=== PATIENT | male | born 1935 | race Caucasian/White ===

== ENCOUNTER 2016-10-24 12:08 | Emergency (ER) | payer OTHER ==
[2013-06-25 23:39] VITALS: BMI 25.2
[~2016-10-24 12:08] MED LIST: BAYER CHEWABLE81 MG PO; BRILINTA90 MG PO; COREG6.25 MG PO; ISOSORBIDE DINI30 MG PO; NITROQUICK0.4 MG SL; PRINIVIL20 MG PO; ZOCOR80 MG PO
[2016-10-24 15:53] LABS: ALBUMIN 3.8 g/dL (3.4-5.0); ALKALINE PHOSPHATASE 75 U/L (46-116); ALT (SGPT) 29 U/L (10-68); BILIRUBIN - TOTAL 0.29 mg/dL (0.2-1.3); CALC OSMOLALITY 278 mosm/kg (275-300); CALCIUM 8.5 mg/dL (8.5-10.1); CARBON DIOXIDE 29.4 mmol/L (21.0-32.0); CHLORIDE - SERUM 102 mmol/L (98-107); CREATININE - SERUM 1.1 mg/dL (0.6-1.3); GLUCOSE 98 mg/dL (74-106); POTASSIUM - SERUM 5.1 mmol/L (3.5-5.1); PROTEIN - SERUM 7.2 g/dL (6.4-8.2); SODIUM 137 mmol/L (136-145); UREA NITROGEN 26 mg/dL (7-18); eGFR NON AFRICAN AMERICAN 68 mL/min (90-120)
[2016-10-24 15:55] LABS: TROPONIN-I < 0.017 ng/mL (0.000-0.060)
[2016-10-24 16:01] LABS: BASOPHILS 0.4 % (0.0-2.0); EOSINOPHILS 7.1 % (0-7); HEMATOCRIT 39.5 % (42.0-54.0); HEMOGLOBIN 12.9 g/dL (13.5-17.5); IMMATURE GRANULOCYTES 0.1 % (0-5); LYMPHOCYTES 29.7 % (15-50); MCH 32.4 pg (26.0-34.0); MCHC 32.7 g/dL (31.0-37.0); MCV 99.2 fL (80.0-100.0); MONOCYTES 9.7 % (2-11); PLATELET COUNT 172 10x3/uL (130-400); RBC 3.98 10x6/uL (4.20-6.10); RDW 13.8 % (11.5-14.5); WBC 7.9 10x3/uL (4.8-10.8)
== END 2016-10-24 18:29 | disposition home or self-care (01) ==
LOC: D.ER 12:08
PROVIDERS: Physician Assistant
DX: M54.5 Low back pain (principal); I25.118 Atherosclerotic heart disease of native coronary artery with other forms of angina pectoris; R11.0 Nausea; Z72.0 Tobacco use

== ENCOUNTER 2017-05-22 14:44 | Emergency (ER) | payer OTHER ==
[2013-06-25 23:39] VITALS: BMI 25.2
[2017-05-22 15:28] LABS: BASOPHILS 0.2 % (0-2); HEMOGLOBIN 13.7 g/dL (13.5-17.5); IMMATURE GRANULOCYTES 0.3 % (0-5); LYMPHOCYTES 25.9 % (15-50); MCH 33.3 pg (26.0-34.0); MCHC 33.4 g/dL (31.0-37.0); MCV 99.5 fL (80.0-100.0); MEAN PLATELET VOLUME 9.7 fL (7.4-10.4); NEUTROPHILS 61.6 % (40-80); PLATELET COUNT 177 10x3/uL (130-400); RBC 4.12 10x6/uL (4.20-6.10); RDW 14.2 % (11.5-14.5); WBC 9.2 10x3/uL (4.8-10.8)
[2017-05-22 15:36] LABS: INR 0.98 (0.85-1.17); PROTIME 12.8 SECONDS (11.6-15.0)
[2017-05-22 15:47] LABS: ALBUMIN 3.6 g/dL (3.4-5.0); ALKALINE PHOSPHATASE 71 U/L (46-116); ALT (SGPT) 23 U/L (10-68); BILIRUBIN - TOTAL 0.34 mg/dL (0.2-1.3); CALC OSMOLALITY 283 mosm/kg (275-300); CALCIUM 8.9 mg/dL (8.5-10.1); CARBON DIOXIDE 28.3 mmol/L (21.0-32.0); CHLORIDE - SERUM 105 mmol/L (98-107); CREATININE - SERUM 1.3 mg/dL (0.6-1.3); GLUCOSE 123 mg/dL (74-106); POTASSIUM - SERUM 4.1 mmol/L (3.5-5.1); SODIUM 139 mmol/L (136-145); UREA NITROGEN 26 mg/dL (7-18); eGFR NON AFRICAN AMERICAN 56 mL/min (90-120)
[2017-05-22 15:55] LABS: CREATINE KINASE 82 UL (21-232); MAGNESIUM - SERUM 2.1 mg/dL (1.8-2.4); PRO BNP 140 pg/mL (0-450)
[2017-05-22 16:01] LABS: TROPONIN-I < 0.017 ng/mL (0.000-0.060)
[2017-05-22 16:12] LABS: APPEARANCE CLEAR (CLEAR); BILIRUBIN NEGATIVE (NEGATIVE); COLOR YELLOW (YELLOW); GLUCOSE NEGATIVE (NEGATIVE); KETONE NEGATIVE (NEGATIVE); NITRITE NEGATIVE (NEGATIVE); PROTEIN NEGATIVE (NEGATIVE); SPECIFIC GRAVITY 1.015 (1.005-1.020); UROBILINOGEN NORMAL (NORMAL)
== END 2017-05-22 19:48 | disposition home or self-care (01) ==
LOC: D.ER 14:44
PROVIDERS: Emergency Medicine; Nurse Practitioner Family
DX: J44.1 Chronic obstructive pulmonary disease with (acute) exacerbation (principal); M79.602 Pain in left arm

== ENCOUNTER 2017-05-27 22:51 | Emergency (ER) | payer OTHER ==
[2013-06-25 23:39] VITALS: BMI 25.2
[2017-05-27 23:01] LABS: HEMATOCRIT 40.9 % (42.0-54.0); HEMOGLOBIN 13.9 g/dL (13.5-17.5); LYMPHOCYTES 17.6 % (15-50); MCH 32.9 pg (26.0-34.0); MCV 96.9 fL (80.0-100.0); MEAN PLATELET VOLUME 10.1 fL (7.4-10.4); NEUTROPHILS 74.3 % (40-80); PLATELET COUNT 191 10x3/uL (130-400); RBC 4.22 10x6/uL (4.20-6.10); RDW 14.4 % (11.5-14.5); WBC 9.9 10x3/uL (4.8-10.8)
[2017-05-27 23:20] LABS: ALBUMIN 3.7 g/dL (3.4-5.0); ALKALINE PHOSPHATASE 66 U/L (46-116); ALT (SGPT) 25 U/L (10-68); BILIRUBIN - TOTAL 0.14 mg/dL (0.2-1.3); CALC OSMOLALITY 285 mosm/kg (275-300); CARBON DIOXIDE 31.2 mmol/L (21.0-32.0); CHLORIDE - SERUM 101 mmol/L (98-107); CREATININE - SERUM 1.3 mg/dL (0.6-1.3); GLUCOSE 117 mg/dL (74-106); POTASSIUM - SERUM 4.6 mmol/L (3.5-5.1); PROTEIN - SERUM 7.5 g/dL (6.4-8.2); SODIUM 140 mmol/L (136-145); UREA NITROGEN 28 mg/dL (7-18); eGFR NON AFRICAN AMERICAN 56 mL/min (90-120)
[2017-05-27 23:26] LABS: CHOL - HDL RATIO 2.5 ratio (2.3-4.9); CHOLESTEROL, TOTAL 160 mg/dL (0-200); CKMB 0.9 U/L (0.0-3.6); CREATINE KINASE 58 UL (21-232); HDL CHOLESTEROL 64 mg/dL (32-96); LDL CHOLESTEROL 75 mg/dL (0-100); LDL-HDL RATIO 1.2 ratio (1.5-3.5); TRIGLYCERIDE 107 mg/dL (30-200)
[2017-05-27 23:27] LABS: TROPONIN-I < 0.017 ng/mL (0.000-0.060)
== END 2017-05-27 23:50 | disposition home or self-care (01) ==
LOC: D.ER 22:51
PROVIDERS: Family Medicine
DX: B02.9 Zoster without complications (principal); J44.9 Chronic obstructive pulmonary disease, unspecified

== ENCOUNTER 2017-06-20 15:01 | Emergency (ER) | payer MEDICARE, OTHER ==
[2013-06-25 23:39] VITALS: BMI 25.2
[2017-06-20 17:08] LABS: BASOPHILS 0.5 % (0-2); EOSINOPHILS 7.3 % (0-7); HEMATOCRIT 39.8 % (42.0-54.0); HEMOGLOBIN 13.2 g/dL (13.5-17.5); IMMATURE GRANULOCYTES 0.3 % (0-5); LYMPHOCYTES 28.3 % (15-50); MCH 32.8 pg (26.0-34.0); MCHC 33.2 g/dL (31.0-37.0); MEAN PLATELET VOLUME 9.6 fL (7.4-10.4); MONOCYTES 11.4 % (2-11); NEUTROPHILS 52.2 % (40-80); PLATELET COUNT 185 10x3/uL (130-400); RBC 4.02 10x6/uL (4.20-6.10); WBC 7.3 10x3/uL (4.8-10.8)
[2017-06-20 17:22] LABS: ALBUMIN 3.3 g/dL (3.4-5.0); ALKALINE PHOSPHATASE 65 U/L (46-116); ALT (SGPT) 18 U/L (10-68); BILIRUBIN - TOTAL 0.14 mg/dL (0.2-1.3); CALC OSMOLALITY 275 mosm/kg (275-300); CALCIUM 8.6 mg/dL (8.5-10.1); CARBON DIOXIDE 31.7 mmol/L (21.0-32.0); CHLORIDE - SERUM 101 mmol/L (98-107); GLUCOSE 101 mg/dL (74-106); POTASSIUM - SERUM 4.6 mmol/L (3.5-5.1); SODIUM 137 mmol/L (136-145); UREA NITROGEN 18 mg/dL (7-18); eGFR NON AFRICAN AMERICAN 76 mL/min (90-120)
== END 2017-06-20 22:30 | disposition home or self-care (01) ==
LOC: D.ER 15:01
PROVIDERS: Physician Assistant
DX: R55 Syncope and collapse (principal); Z87.09 Personal history of other diseases of the respiratory system; I95.9 Hypotension, unspecified; B02.29 Other postherpetic nervous system involvement; F17.200 Nicotine dependence, unspecified, uncomplicated

== ENCOUNTER 2017-11-21 12:21 | Observation (INO) | payer MEDICARE, OTHER ==
[~2017-11-21] VITALS: Ht 167.6 cm; Wt 64.5 kg
[2017-11-21 13:17] LABS: BASOPHILS 0.4 % (0-2); EOSINOPHILS 4.9 % (0-7); HEMATOCRIT 41.7 % (42.0-54.0); HEMOGLOBIN 14.1 g/dL (13.5-17.5); IMMATURE GRANULOCYTES 0.3 % (0-5); LYMPHOCYTES 34.8 % (15-50); MCH 33.1 pg (26.0-34.0); MCHC 33.8 g/dL (31.0-37.0); MCV 97.9 fL (80.0-100.0); MEAN PLATELET VOLUME 10.2 fL (7.4-10.4); NEUTROPHILS 52.6 % (40-80); PLATELET COUNT 186 10x3/uL (130-400); RBC 4.26 10x6/uL (4.20-6.10); RDW 13.7 % (11.5-14.5); WBC 7.2 10x3/uL (4.8-10.8)
[2017-11-21 13:45] LABS: ALBUMIN 3.7 g/dL (3.4-5.0); ALKALINE PHOSPHATASE 62 U/L (46-116); ALT (SGPT) 20 U/L (10-68); BILIRUBIN - TOTAL 0.37 mg/dL (0.2-1.3); CALC OSMOLALITY 274 mosm/kg (275-300); CALCIUM 9.2 mg/dL (8.5-10.1); CHLORIDE - SERUM 101 mmol/L (98-107); CREATININE - SERUM 0.9 mg/dL (0.6-1.3); GLUCOSE 106 mg/dL (74-106); POTASSIUM - SERUM 4.6 mmol/L (3.5-5.1); PROTEIN - SERUM 7.3 g/dL (6.4-8.2); SODIUM 136 mmol/L (136-145); UREA NITROGEN 21 mg/dL (7-18); eGFR NON AFRICAN AMERICAN 85 mL/min (90-120)
[2017-11-21 13:54] LABS: CKMB 0.7 U/L (0.0-3.6); CREATINE KINASE 74 UL (21-232)
[2017-11-21 13:56] LABS: TROPONIN-I < 0.017 ng/mL (0.000-0.060)
[2017-11-21 19:48] LABS: APPEARANCE CLEAR (CLEAR); BILIRUBIN NEGATIVE (NEGATIVE); COLOR YELLOW (YELLOW); GLUCOSE NEGATIVE (NEGATIVE); KETONE NEGATIVE (NEGATIVE); NITRITE NEGATIVE (NEGATIVE); PROTEIN NEGATIVE (NEGATIVE); UROBILINOGEN NORMAL (NORMAL)
[2017-11-21 21:48] VITALS: BP 113/72; BMI 21.8
[2017-11-21 22:31] LABS: CKMB 0.6 U/L (0.0-3.6); CREATINE KINASE 71 UL (21-232)
[2017-11-21 22:33] LABS: TROPONIN-I < 0.017 ng/mL (0.000-0.060)
[2017-11-22 00:22] VITALS: BP 124/68
[2017-11-22 04:00] VITALS: BP 133/75
[2017-11-22 04:04] LABS: BASOPHILS 0.6 % (0-2); HEMATOCRIT 40.7 % (42.0-54.0); HEMOGLOBIN 13.5 g/dL (13.5-17.5); IMMATURE GRANULOCYTES 0.1 % (0-5); LYMPHOCYTES 34.6 % (15-50); MCH 32.5 pg (26.0-34.0); MCHC 33.2 g/dL (31.0-37.0); MCV 97.8 fL (80.0-100.0); MEAN PLATELET VOLUME 10.5 fL (7.4-10.4); MONOCYTES 9.8 % (2-11); NEUTROPHILS 49.9 % (40-80); PLATELET COUNT 167 10x3/uL (130-400); RBC 4.16 10x6/uL (4.20-6.10); RDW 13.7 % (11.5-14.5); WBC 7.1 10x3/uL (4.8-10.8)
[2017-11-22 04:46] LABS: CALC OSMOLALITY 275 mosm/kg (275-300); CALCIUM 8.8 mg/dL (8.5-10.1); CARBON DIOXIDE 28.2 mmol/L (21.0-32.0); CHLORIDE - SERUM 103 mmol/L (98-107); CKMB 0.7 U/L (0.0-3.6); CREATINE KINASE 72 UL (21-232); GLUCOSE 96 mg/dL (74-106); POTASSIUM - SERUM 4.3 mmol/L (3.5-5.1); SODIUM 137 mmol/L (136-145); TROPONIN-I < 0.017 ng/mL (0.000-0.060); UREA NITROGEN 18 mg/dL (7-18); eGFR NON AFRICAN AMERICAN 76 mL/min (90-120)
[2017-11-22 08:13] VITALS: BP 119/83
[2017-11-22 09:54] LABS: CKMB 0.7 U/L (0.0-3.6); CREATINE KINASE 71 UL (21-232)
[2017-11-22 09:57] LABS: TROPONIN-I < 0.017 ng/mL (0.000-0.060)
[2017-11-22 11:02] VITALS: Ht 167.6 cm; Wt 64.5 kg
[2017-11-22 12:51] VITALS: BP 141/67
== END 2017-11-22 14:05 | disposition home or self-care (01) ==
LOC: D.ER 12:21 → D.M2 16:27 → D.EDHOLD 16:27 → OBSVTIME 16:27 → D.M2 16:56
PROVIDERS: Family Medicine; Nurse Practitioner Family
DX: R07.9 Chest pain, unspecified (principal); I25.10 Atherosclerotic heart disease of native coronary artery without angina pectoris; Z95.5 Presence of coronary angioplasty implant and graft; E78.5 Hyperlipidemia, unspecified; I10 Essential (primary) hypertension; Z66 Do not resuscitate

== ENCOUNTER 2018-01-28 09:50 | Inpatient (IN) | payer MEDICARE ==
[~2018-01-28] VITALS: Ht 167.6 cm; Wt 74.5 kg
--- NOTE | ~2018-01-28 | OP ---
PATIENT NAME: FREDIS BELL MEDICAL RECORD: [id number] :34 LOCATION:D.M2 D.2133 ADMISSION DATE:01/29/18 SURGEON: CASEY COLINDRES MD DATE OF OPERATION: 01/30/2018 PROCEDURES: 1. PTCA stent left circumflex. 2. PTCA stent first obtuse marginal. 3. Left heart catheterization. 4. Selective coronary angiography. 5. Left ventriculogram. 6. Four-vessel carotid and vertebral angiography. INDICATION: Unstable angina, coronary artery disease, syncope, carotid vascular disease. PROCEDURE PERFORMED: After informed consent was obtained and after a detailed description of risks, benefits as well as alternative therapies, the patient elected to proceed with angiogram and angioplasty. The right femoral area was prepped and draped in normal sterile fashion. Right femoral artery was cannulated via modified Seldinger technique with placement of a 6-Yoruba sheath. All catheters exchanged through this sheath. There was subselection of each subclavian as well as the left carotid. FINDINGS: RIGHT SIDE: The common internal and external carotids have mild plaquing, none greater than 20%, no flow-limiting stenosis. Vertebral artery has no significant disease. LEFT SYSTEM: The common internal and external carotids have mild plaquing, no greater than 20%, no flow-limiting stenosis. Vertebral artery has no significant disease. Left ventriculogram was performed in standard 30-degree BARNEY view, reveals good cardiac wall motion throughout all segments. Overall ejection fraction estimated at 50%. SELECTIVE CORONARY ANGIOGRAPHY: 1. Left main is with no significant angiographic disease. 2. Left anterior descending has previously placed stents, these are widely patent with no significant restenosis. No disease elsewise throughout the LAD or its branches. 3. Left circumflex has previously placed stent in the first obtuse marginal 90% stenosis at the ostium of the obtuse marginal. 4. Right coronary artery has mild irregularities, but no flow-limiting stenosis. PTCA STENT OF THE LEFT CIRCUMFLEX: First obtuse marginal was addressed with a 2.5 x 8 mm [place]. This caused extreme plaque shift into the left circumflex itself causing greater than 70% stenosis of the circumflex. That was addressed with a 3.5 x 12 mm Abdelrahman. Result was 0% residual stenosis. OVERALL IMPRESSION: Successful percutaneous transluminal coronary angioplasty stent of the left circumflex going from 90% initial stenosis to 0% residual. TRANSINT:[id number] Voice Confirmation ID: [id number] DOCUMENT ID: [id number] OPERATIVE REPORT [id number] FREDIS BELL, CASEY RUSSELL at 1325 CC: [id number] DICTATION DATE: 01/30/18 1227 SECURITY INTERN: 01/30/18 1316 DIS IN 01/31/18 [place] [id number]
--- NOTE | ~2018-01-28 | EC ---
PATIENT:FREDIS BELL DATE OF SERVICE: 01/29/18 SEX: M MEDICAL RECORD: [id number] DATE OF : 34 LOCATION:D.M2 D.213 AGE OF PATIENT: 82 ADMISSION DATE: 01/29/18 REFERRING PHYSICIAN: INTERPRETING PHYSICIAN: CASEY HERNÁNDEZ MD ECHOCARDIOGRAM REPORT ECHO CHARGES 4 ECHO COMPLETE Date: 01/30 CLINICAL DIAGNOSIS: CHF ECHOCARDIOGRAPHIC MEASUREMENTS (adult normal given) AC root (d.<3.7cm) 3.1 cm LV Septum d (<1.2 cm> 1.0 cm Valve Excursion 1.5 cm LV Septum (systole) 1.6 cm Left Atria (s.<4.0cm> 3.3 cm LVPW d(<1.2cm) 1.0 cm RV (d.<2.3cm) 2.5 cm LVPW (sytole) 1.6 cm LV diastole(<5.6CM) 5.9 cm MV E-F(>70mm/sec) cm LV systole 4.5 cm LVOT Diameter 1.9 cm MV exc.(>10mm) cm Est.ejection fraction (50-75%) % DOPPLER: LVIT cm/sec A 72.0 cm/sec E 60.0 cm/sec LA cm/sec RVSP 28.4 mmHg LVOT 88.0 cm/sec AOP1/2T m/s Asc. Ao 149 cm/sec RVOT cm/sec RA cm/sec PA cm/sec AV Gradient Peak 8.9 mmHg AV Mean 3.7 mmHg AV Area 2.0 cm MV Gradient Peak 2.9 mmHg MV Mean 1.1 mmHg MV Area cm COMMENTS: Building Mover: 1 EDIL JONESOE Clay Hoister: 1 Dr. Hernández TAPE# PACS Pericardial Effusion N DATE OF SERVICE: 01/31/2018 PROCEDURE: Echocardiogram. FINDINGS: 1. Left ventricular chamber size is within normal limits. Left ventricular systolic function is mildly depressed, ejection fraction estimated 40%. There is mild global hypokinesis throughout all segments with no discrete wall motion abnormalities present. 2. Valvular structures have normal structure and motion. ECHOCARDIOGRAM REPORT [id number] FREDIS BELL 3. Doppler interrogation reveals no significant valvular insufficiency or stenosis and pulmonary systolic pressure is normal estimated 28 mmHg. 4. No evidence of pericardial effusion or left ventricular thrombus. TRANSINT:[id number] Voice Confirmation ID: [id number] DOCUMENT ID: [id number] CASEY HERNÁNDEZ MD at 1325 CC: [id number] DICTATION DATE: 02/01/18 1053 AVIONICS ELECTRONICS TECHNICIAN: 02/01/18 1124 DIS IN 01/31/18 [place] [id number] [place] [id number]
--- NOTE | ~2018-01-28 | HEMODYNAMI ---
PATIENT:FREDIS BELL MEDICAL RECORD: [id number] : 34 [id number] ADMISSION DATE: 01/29/18 Generatedon:01/30/201812:27 Patient name: FREDIS BELL Patient #: [id number] SSN: : 1935 Date of study: 01/30/2018 Page: Of Hemodynamic Procedure Report Patient Data Patient Demographics Procedure consent was obtained First Name: FREDIS Gender: Male Last Name: ARABELLA : 1935 Middle Initial: D Age: 82 year(s) Patient #: [id number] Race: Unknown Additional ID: [id number] Contact details [address]: [address] [place] [address] rd State: [place] City: [place] Zip code: [address] Admission Admission Data Admission Date: 01/29/2018 Admission Time: 15:59 Room #: D.2133 Lab Results Lab Result Date: 01/30/2018 Lab Result Time: 0:00 Biochemistry Name Units Result Min Max BUN mg/dl 23 --(----)-* 7 18 Creatinine mg/dl 1 --(--*-)-- 0.6 1.3 CBC Name Units Result Min Max Hemoglobin g/dl 12.7 -*(----)-- 13.5 17.5 Procedure Procedure Types Cath Procedure Diagnostic Procedure [facility] w/Coronaries PCI Procedure Coronary Stent Coronary Stent Initial Coronary Stent Additional Peripheral Cath Diagnostic Procedure Cath Peripheral Four Vessel Arteriogram Procedure Description Procedure Date Procedure Date: 01/30/2018 Procedure Start Time: 12:01 Procedure End Time: 12:26 Procedure Staff Name Function Micheal Hernández MD Performing Physician Ghislaine De La Vega RN Nurse [facility] RT Monitor Donovan Blackwood RT Scrub Procedure Data Cath Procedure Fluoroscopy Diagnostic fluoroscopy Total fluoroscopy Time: 8.9 time: 8.9 min min Diagnostic fluoroscopy Total fluoroscopy dose: dose: 1061 mGy 1061 mGy Contrast Material Contrast Material Type Amount (ml) Isovue 300 169 Entry Location Entry Primary Successful Side Size Upsize Upsize Entry Closure Succes sful Closure Location (Fr) 1 (Fr) 2 (Fr) Remarks Device Remarks Femoral Right 5 Fr 6 Fr Exoseal artery Short Estimated blood loss: 20 ml Diagnostic catheters Device Type Used For End Catheter Placement MULTIPACK Pigtail 5 Fr Procedure catheter MULTIPACK JL 4.0 5Fr Procedure catheter MULTIPACK 3DRC 5Fr Procedure catheter Procedure Medications Medication Administration Route Dosage Oxygen NC 2 l/min Lidocaine 2% added to field 20 Heparin Flush Bag added to field 2 bags (1000units/500ml NS) 0.9% NaCl I.V. 100 ml/hr Versed I.V. 1 mg Fentanyl I.V. 50 mcg Heparin Bolus I.V. 4000 units Integrilin (Bolus I.V. 6.2 ml 2mg/ml) Plavix P.O. 600 mg Hemodynamics Rest HGB: 12.7 (g/dl) Heart Rate: 69 (bpm) Pressure Samples Time Site Value (mmHg) Purpose Heart Use Rate(bpm) 12:03 LV 102/8,32 Snapshot 72 Snapshots Pre Cath Intra NCS Post Cath Vital Signs Time Heart Resp SPO2 etCO2 NIBP (mmHg) Rhythm Pain Sedation Rate (ipm) (%) (mmHg) Status Level (bpm) 11:43:37 73 13 98 0 111/69(99) NSR 0 (11) 10(A) , No pain 11:47:42 71 13 95 35.9 114/63(91) NSR 0 (11) 10(A) , No pain 11:51:52 72 12 97 41.9 100/52(80) NSR 0 (11) 10(A) , No pain 11:55:56 75 12 97 46.4 98/54(78) NSR 0 (11) 10(A) , No pain 11:59:58 73 12 95 42.6 114/56(100) NSR 0 (11) 10(A) , No pain 12:04:06 75 18 97 38.1 93/58(78) NSR 0 (11) 9(A) , No pain 12:08:05 75 17 97 17.9 99/58(79) NSR 0 (11) 9(A) , No pain 12:12:09 76 15 96 40.4 91/51(81) NSR 0 (11) 9(A) , No pain 12:16:09 77 14 95 41.1 100/58(72) NSR 0 (11) 9(A) , No pain 12:20:12 76 15 96 44.9 98/57(76) NSR 0 (11) 10(A) , No pain 12:24:12 76 20 96 32.9 100/63(78) NSR 0 (11) 10(A) , No pain Medications Time Medication Route Dose Verified Delivered Reason Notes Effectiveness by by 11:45:51 Oxygen NC 2 Micheal Buffie used for l/min Betty De La Vega RN procedure 11:45:58 Lidocaine 2% added 20ml Micheal Buffie for local to vial Betty De La Vega RN anesthetic field 11:46:04 Heparin Flush added 2 Micheal Buffie used for Bag to bags Betty De La Vega RN procedure (1000units/500ml field NS) 11:46:16 0.9% NaCl I.V. 100 Micheal Scanlon Per physician ml/hr Betty De La Vega RN 11:56:41 Versed I.V. 1 mg Micheal Scanlon for sedation Betty De La Vega RN 11:56:47 Fentanyl I.V. 50 Micheal Cortesie for sedation mcg Betty De La Vega RN 12:10:26 Heparin Bolus I.V. 4000 Micheal Scanlon for verifi ed units Betty De La Vega RN anticoagulation with dr hernández 12:12:23 Integrilin I.V. 6.2 Micheal Scanlon for wasted (Bolus 2mg/ml) ml Betty De La Vega RN antiplatelet 3.8 ml therapy of vial 12:23:56 Plavix P.O. 600 Micheal Scanlon for mg Betty De La Vega RN antiplatelet therapy Procedure Log Time Note 11:15:18 Donovan Blackwood RT(R) sent for patient. Start room use. 11:24:19 Time tracking: Regular hours (M-F 7:00 - 5:00) 11:24:23 Plan of Care:Hemodynamics will remain stable., Cardiac rhythm will remain stable., Comfort level will be maintained., Respiratory function will remain adequate., Patient/ family verbilizes understanding of procedure., Procedure tolerated without complication., Recovers from procedure without complications.. 11:28:45 Lab Result : BUN 23 mg/dl 11:28:45 Lab Result : Creatinine 1 mg/dl 11::45 Lab Result : Hemoglobin 12.7 g/dl 11::56 Lab results completed and on chart. 11:35:20 Patient received from Pre/Post Procedure Room to CCL 2 Alert and oriented. Tansferred to table in Supine position. 11:35:30 Warm blankets applied, and marisabel hugger turned on for patient comfort. 11:35:52 Correct patient and procedure confirmed by team. 11:35:56 Signed procedure consent form obtained from patient. 11:42:29 ECG and BP/O2 sat monitors applied to patient. 11:42:30 Vital chart was started 11:42:31 Baseline sample Acquired. 11:42:36 Rhythm: sinus rhythm 11:42:37 Full Disclosure recording started 11:42:58 H&P Date Dictated: 01/29/2018 Within 30 days and on chart.. 11:43:00 Pt c/o weak lt hand, unable to make fist at this time. Pt states worse when it is cold and has been present for a long time. 11:43:00 Pre-procedure instructions explained to patient. 11:43:00 Pre-op teaching completed and patient verbalized understanding. 11:43:07 Family unavailable. 11:43:09 Patient NPO since Midnight. 11:43:18 ----Pre-sedation anethsthesia assessment.---- 11:43:20 Previous problem with sedation/anesthesia? No ? 11:43:22 Snore? Yes 11:43:24 Sleep apnea? No 11:43:25 Deviated septum? No 11:43:26 Opens mouth fully? Yes 11:43:27 Sticks out tongue? Yes 11:43:32 Airway obstruction? Yes COPD 11:43:39 Dentures? Yes OUT 11:43:44 Pre procedure: right dorsailis pedis pulse 1+ Palpable, but thready & weak; easily obliterated 11:45:01 Patient pain scale 0/10 ?. 11:45:08 IV patent on arrival in left forearm with 0.9% NaCl at [facility]. 11:45:15 Right groin area was prepped with chlora-prep and draped in sterile fashion 11:45:17 Alarms reviewed by R. N. 11:45:18 Sharps counted by scrub and verified by R.N. 11:45:27 Use device set Femoral Dx 11:45:29 ACIST Syringe (89719) opened to sterile field. 11:45:29 Bag Decanter (2002S) opened to sterile field. 11:45:30 Medline Cath Pack ([id number]) opened to sterile field. 11:45:30 DIAGNOSTIC WIRE .035 260cm J wire (704188) opened to sterile field. 11:45:32 ACIST Hand Control (39955) opened to sterile field. 11:45:33 ACIST Manifold (33105) opened to sterile field. 11:45:34 DIAGNOSTIC Multipack 5Fr catheter set (GF9475) opened to sterile field. 11:45:35 Tegaderm 4 x 4 (1626W) opened to sterile field. 11:45:37 SHEATH Prelude 5Fr 0.035 (QSJ-1U-99-035) opened to sterile field. 11:45:51 Oxygen 2 l/min NC was administered by Ghislaine De La Vega RN; used for procedure; 11:45:58 Lidocaine 2% 20ml vial added to field was administered by Ghislaine De La Vega RN; for local anesthetic; 11:46:04 Heparin Flush Bag (1000units/500ml NS) 2 bags added to field was administered by Ghislaine De La Vega RN; used for procedure; 11:46:16 0.9% NaCl 100 ml/hr I.V. was administered by Ghislaine De La Vega RN; Per physician; 11:49:36 FLU VACCINE ALLERGY 11:49:40 Is the patient allergic to Iodine/contrast media? No. 11:49:49 Is patient on blood thinner?No 11:49:53 Patient diabetic? No. 11:54:16 Physician arrived 11:54:17 --------ALL STOP TIME OUT------ 11:54:17 Final Timeout: patient, procedure, and site verified with staff and physician. All members of the team are in agreement. 11:54:19 Right groin site verified by team. 11:54:23 Physical assessment completed. ASA score P 2 - A patient with mild systemic disease as per Micheal Hernández MD. 11:54:30 Sedation plan: IV Moderate Sedation Medication:Versed, Fentanyl 11:56:29 Zero performed for pressure channel P1 11:56:41 Versed 1 mg I.V. was administered by Buffie De La Vega RN; for sedation; 11:56:47 Fentanyl 50 mcg I.V. was administered by Ghislaine De La Vega RN; for sedation; 11:57:09 Procedure type changed to Cath procedure, Diagnostic procedure, LHC, LHC w/Coronaries, PCI procedure, Coronary Stent, Coronary Stent Initial, Coronary Stent Additional, Peripheral Cath Diagnostic Procedure, Cath Peripheral, Four Vessel Arteriogram 12:00:49 Procedure started. 12:01:18 Local anesthetic to right femoral artery with Lidocaine 2% by Micheal Hernández MD.INITIAL ACCESS ONLY 12:02:01 A 5 Fr sheath was inserted into the Right Femoral artery 12:02:13 A MULTIPACK Pigtail 5 Fr catheter was advanced over the wire and used for Procedure. 12:03:28 LV hemodynamics recorded. 12:03:33 EF : 50 % 12:03:35 LV gram done using BARNEY 12:03:39 Catheter removed. 12:04:13 A MULTIPACK JL 4.0 5Fr catheter was advanced over the wire and used for Procedure. 12:04:42 LCA angiography performed. 12:05:34 Catheter removed. 12:06:19 A MULTIPACK 3DRC 5Fr catheter was advanced over the wire and used for Procedure. 12:06:42 RCA angiography performed. 12:07:20 Right subclavian angiography performed 12:07:29 Left carotid angiography performed. 12:07:35 Left subclavian angiography performed 12:07:53 Catheter removed. 12:07:54 Proceeding to intervention OM 2 12:07:56 SHEATH Prelude 6Fr 0.035 (ZDB-5X-30-035) opened to sterile field. 12:07:59 CHOICE PT Extra Support 182cm wire ([id number]) opened to sterile field. 12:08:00 INFLATOR Merit BasixCompak (WU2340) opened to sterile field. 12:08:29 Sheath upsized to a 6 Fr Short. 12:08:54 GUIDE 6FR XB 4.0 catheter ([id number]) opened to sterile field. 12:09:07 6 Fr XB 4 guide catheter was inserted over the wire 12:10:26 Heparin Bolus 4000 units I.V. was administered by Ghislaine De La Vega RN; for anticoagulation; verified with dr hernández 12:10:33 CHOICE wire advanced. 12:11:08 Wire advanced across lesion. 12:12:23 Integrilin (Bolus 2mg/ml) 6.2 ml I.V. was administered by Ghislaine De La Vega RN; for antiplatelet therapy; wasted 3.8 ml of vial 12:13:08 Place stent Inflation Number: 1 A IVY RX 2.5 x 08 stent ([id number]) was prepped and advanced across the 2nd Ob Alicia. The stent was deployed at 17 MARION for 0:10 (min:sec). 12:13:34 Inflation number: 2 The stent balloon was then re-inflated across the 2nd Ob Alicia to 17 MARION for 0:10 (min:sec). 12:14:05 Wire redirected to CIRCUMFLEX. 12:14:42 Inflation number: 1 The stent balloon was then re-inflated across the Prox CX to 17 MARION for 0:10 (min:sec). 12:14:44 Stent catheter was removed intact over wire. 12:16:43 Place stent Inflation Number: 2 A IVY RX 3.5 x 12 stent ([id number]) was prepped and advanced across the Prox CX. The stent was deployed at 17 MARION for 0:10 (min:sec). 12:18:37 CHOICE PT Extra Support 182cm wire ([id number]) opened to sterile field. 12:18:45 Stent catheter was removed intact over wire. 12:18:52 NEW CHOICE wire advanced. 12:19:10 Stent balloon re-inserted over wire. 12:19:22 2.5 X 8 12:19:55 Inflation number: 3 The stent balloon was then re-inflated across the 2nd Ob Alicia to 17 MARION for 0:10 (min:sec). 12:20:18 Wire redirected to CX. 12:20:47 Inflation number: 3 The stent balloon was then re-inflated across the Prox CX to 9 MARION for 0:10 (min:sec). 12:21:01 EXOSEAL 6Fr (EX600) opened to sterile field. 12:21:14 Stent catheter was removed intact over wire. 12:21:15 Wire removed. 12:21:16 Guide catheter removed. 12:21:45 Sheath removed intact; hemostasis achieved with Exoseal to the Right Femoral artery. 12:21:48 Procedure ended.(Physican Out) 12:22:11 Fluoroscopy time 08.90 minutes. 12:22:20 Fluoroscopy dose: 1061 mGy 12:22:20 Flurop Dose total: 1061 12:22:33 Contrast amount:Isovue 300 169ml. 12:22:39 Insertion/operative site no bleeding no hematoma. 12:23:56 Plavix 600 mg P.O. was administered by Ghislaine De La Vega RN; for antiplatelet therapy; 12:25:29 Post-op/insertion site Right Femoral artery dressed using a 4 x 4 and Tegaderm. 12:25:34 Post right femoral artery:stable 12:25:37 Post Procedure Pulses reassessed and unchanged 12:25:41 Post-procedure physical assessment completed. ASA score P 2 - A patient with mild systemic disease as per Micheal Hernández MD. 12:25:44 Post procedure rhythm: unchanged. 12:25:48 Estimated blood loss: 20 ml 12:25:49 Post procedure instruction explained to patient.Patient verbalizes understanding. 12:25:50 Patient needs reinforcement of post procedure teaching. 12:26:47 Procedure and supply charges have been captured, reviewed, submitted and are correct. 12:26:48 Vital chart was stopped 12:26:50 See physician's report for complete and final results. 12:26:52 Report given to PCU. 12:26:56 Patient transfered to PCU with Bed. 12:26:58 Procedure ended. 12:26:58 Full Disclosure recording stopped 12:27:03 End room use (Document Last) Intervention Summary Intervention Notes Time ActionType Lesion and Equipment Used Action# Pressure Duration Attributes 12:13:08 Place stent 2nd Ob Alicia IVY RX 2.5 x 1 17 00:10 08 stent ([id number]) 12:13:34 Reinflate 2nd Ob Alicia IVY RX 2.5 x 2 17 00:10 stent 08 stent balloon ([id number]) 12:14:42 Reinflate Prox CX IVY RX 2.5 x 1 17 00:10 stent 08 stent balloon ([id number]) 12:16:43 Place stent Prox CX IVY RX 3.5 x 2 17 00:10 12 stent ([id number]) 12:19:55 Reinflate 2nd Ob Alicia IVY RX 2.5 x 3 17 00:10 stent 08 stent balloon ([id number]) 12:20:47 Reinflate Prox CX IVY RX 2.5 x 3 9 00:10 stent 08 stent balloon ([id number]) Device Usage Item Name Manufacture Quantity Catalog Number Hospital Part Current Minimal Lot# / Charge Number Stock Stock Serial# Code ACIST Syringe Acist 1 07952 899463 146229 070318 20 (04845) [employer] Inc Bag Decanter Microtek 1 125905 84062 790215 5 () Medical Inc. Medline Cath Cardinal 1 [id number] 098570 84022 411150 5 Pack Health ([id number]) DIAGNOSTIC WIRE [place] 1 334959 562181 889203 317993 30 .035 260cm J wire (562962) ACIST Hand Acist 1 30692 878898 113160 713140 5 Control (36367) [employer] Inc ACIST Manifold Acist 1 55922 619351 548843 169616 5 (85921) [employer] Inc DIAGNOSTIC Cardinal 1 [id number] 299394 81824 133624 30 Multipack 5Fr Health catheter set ([id number]) Tegaderm 4 x 4 3M 1 1626W 450660 583099 144421 5 (1626W) SHEATH Prelude Merit 1 KXP-5H-92-035 171493 515080 525053 5 5Fr 0.035 Medical (HGL-9R-91-035) MULTIPACK Cardinal 1 394662 5 Pigtail 5 Fr Health catheter MULTIPACK JL Cardinal 1 017347 5 4.0 5Fr Health catheter MULTIPACK 3DRC Cardinal 1 996781 5 5Fr catheter Health SHEATH Prelude Merit 1 VDO-3H-02-35 401434 7487291 067021 5 6Fr 0.035 Medical (JOE-7Y-33-035) CHOICE PT Extra [place] 2 [id number] 645863 757322 064283 5 Support 182cm Scientific wire ([id number]) INFLATOR Merit Merit 1 WZ7741 902694 985985 719274 15 Fashion [employer] Medical (OJ1381) GUIDE 6FR XB Cardinal 1 [id number] 680999 009391 352234 2 4.0 catheter Health ([id number]) IVY RX 2.5 x Medtronic 1 [id number] 912324 0348464 164851 5 [id number] 08 stent ([id number]) IVY RX 3.5 x Medtronic 1 [id number] 218382 7070432 608695 5 [id number] 12 stent ([id number]) EXOSEAL 6Fr Cardinal 1 EX600 231385 586718 657404 10 (EX600) Health Signature Audit [place] Stage Time Signature Unsigned Intra-Procedure 01/30/2018 [facility] 12:27:27 PM RT(R) (CV) Signatures Monitor : [facility] RT Signature : Date : Time : [place] [id number] [place] [address]
[2018-01-28 10:20] LABS: BASOPHILS 0.4 % (0-2); EOSINOPHILS 8.5 % (0-7); HEMOGLOBIN 14.3 g/dL (13.5-17.5); IMMATURE GRANULOCYTES 0.2 % (0-5); MCH 32.6 pg (26.0-34.0); MCHC 33.3 g/dL (31.0-37.0); MCV 97.9 fL (80.0-100.0); MONOCYTES 9.5 % (2-11); NEUTROPHILS 51.4 % (40-80); PLATELET COUNT 182 10x3/uL (130-400); RBC 4.39 10x6/uL (4.20-6.10); RDW 14.1 % (11.5-14.5); WBC 8.1 10x3/uL (4.8-10.8)
[2018-01-28 10:47] LABS: ALBUMIN 3.6 g/dL (3.4-5.0); ALKALINE PHOSPHATASE 67 U/L (46-116); ALT (SGPT) 20 U/L (10-68); BILIRUBIN - TOTAL 0.34 mg/dL (0.2-1.3); CALC OSMOLALITY 280 mosm/kg (275-300); CALCIUM 8.9 mg/dL (8.5-10.1); CARBON DIOXIDE 29.9 mmol/L (21.0-32.0); CHLORIDE - SERUM 104 mmol/L (98-107); GLUCOSE 115 mg/dL (74-106); PROTEIN - SERUM 7.3 g/dL (6.4-8.2); SODIUM 138 mmol/L (136-145); UREA NITROGEN 23 mg/dL (7-18); eGFR NON AFRICAN AMERICAN 76 mL/min (90-120)
[2018-01-28 10:55] LABS: CKMB 0.6 U/L (0.0-3.6); CREATINE KINASE 60 UL (21-232); PRO BNP 139 pg/mL (0-450); TROPONIN-I < 0.017 ng/mL (0.000-0.060)
[2018-01-28 12:00] VITALS: BP 148/70
[2018-01-28 14:00] VITALS: BP 152/61
[2018-01-28 16:00] VITALS: BP 150/78
[2018-01-28 18:00] VITALS: BP 150/81
[2018-01-28] MEDS ORDERED: NEURONTIN 300300 MG PO (19:32)
[2018-01-28 20:00] VITALS: BP 113/63
[2018-01-29] VITALS: BP 87/54
[2018-01-29 05:41] LABS: BASOPHILS 0.5 % (0-2); EOSINOPHILS 8.1 % (0-7); HEMATOCRIT 40.5 % (42.0-54.0); HEMOGLOBIN 13.2 g/dL (13.5-17.5); IMMATURE GRANULOCYTES 0.1 % (0-5); LYMPHOCYTES 30.7 % (15-50); MCHC 32.6 g/dL (31.0-37.0); MCV 98.3 fL (80.0-100.0); MEAN PLATELET VOLUME 10.5 fL (7.4-10.4); MONOCYTES 8.4 % (2-11); NEUTROPHILS 52.2 % (40-80); PLATELET COUNT 182 10x3/uL (130-400); RBC 4.12 10x6/uL (4.20-6.10); RDW 14.1 % (11.5-14.5); WBC 7.9 10x3/uL (4.8-10.8)
[2018-01-29 05:58] LABS: CALC OSMOLALITY 279 mosm/kg (275-300); CALCIUM 8.5 mg/dL (8.5-10.1); CARBON DIOXIDE 30.4 mmol/L (21.0-32.0); CHLORIDE - SERUM 104 mmol/L (98-107); GLUCOSE 107 mg/dL (74-106); POTASSIUM - SERUM 4.4 mmol/L (3.5-5.1); SODIUM 138 mmol/L (136-145); UREA NITROGEN 25 mg/dL (7-18); eGFR NON AFRICAN AMERICAN 76 mL/min (90-120)
[2018-01-29 06:05] VITALS: Ht 167.6 cm; Wt 74.5 kg
[2018-01-29 08:33] VITALS: BP 123/63
[2018-01-29 11:43] VITALS: BP 108/65
[2018-01-29 15:42] VITALS: BP 137/74
[2018-01-29 17:31] LABS: CKMB 0.4 U/L (0.0-3.6); CREATINE KINASE 60 UL (21-232); TROPONIN-I < 0.017 ng/mL (0.000-0.060)
[2018-01-29 20:23] VITALS: BP 81/53
[2018-01-29 22:33] LABS: CKMB 0.5 U/L (0.0-3.6); CREATINE KINASE 92 UL (21-232)
[2018-01-29 22:39] LABS: TROPONIN-I < 0.017 ng/mL (0.000-0.060)
[2018-01-30 00:47] VITALS: BP 86/39
[2018-01-30 05:36] LABS: BASOPHILS 0.5 % (0-2); EOSINOPHILS 9.1 % (0-7); HEMATOCRIT 39.1 % (42.0-54.0); HEMOGLOBIN 12.7 g/dL (13.5-17.5); IMMATURE GRANULOCYTES 0.3 % (0-5); LYMPHOCYTES 31.5 % (15-50); MCH 31.8 pg (26.0-34.0); MCHC 32.5 g/dL (31.0-37.0); MEAN PLATELET VOLUME 10.6 fL (7.4-10.4); MONOCYTES 10.9 % (2-11); NEUTROPHILS 47.7 % (40-80); PLATELET COUNT 185 10x3/uL (130-400); RBC 3.99 10x6/uL (4.20-6.10); RDW 14.1 % (11.5-14.5); WBC 7.9 10x3/uL (4.8-10.8)
[2018-01-30 06:01] VITALS: BP 78/42
[2018-01-30 06:03] LABS: CALC OSMOLALITY 283 mosm/kg (275-300); CALCIUM 8.3 mg/dL (8.5-10.1); CARBON DIOXIDE 31.8 mmol/L (21.0-32.0); CHLORIDE - SERUM 105 mmol/L (98-107); CKMB 0.8 U/L (0.0-3.6); CREATINE KINASE 57 UL (21-232); GLUCOSE 108 mg/dL (74-106); POTASSIUM - SERUM 4.3 mmol/L (3.5-5.1); SODIUM 140 mmol/L (136-145); UREA NITROGEN 23 mg/dL (7-18); eGFR NON AFRICAN AMERICAN 76 mL/min (90-120)
[2018-01-30 06:07] LABS: TROPONIN-I < 0.017 ng/mL (0.000-0.060)
[2018-01-30 08:08] VITALS: BP 122/67
[2018-01-30 10:41] VITALS: BP 117/61
[2018-01-30 15:25] VITALS: BP 115/62
[2018-01-30 20:22] VITALS: BP 98/53
[2018-01-31 00:20] VITALS: BP 93/50
[2018-01-31 05:45] LABS: BASOPHILS 0.4 % (0-2); EOSINOPHILS 9.3 % (0-7); HEMATOCRIT 38.2 % (42.0-54.0); HEMOGLOBIN 12.6 g/dL (13.5-17.5); IMMATURE GRANULOCYTES 0.3 % (0-5); LYMPHOCYTES 13.4 % (15-50); MCH 32.2 pg (26.0-34.0); MCV 97.7 fL (80.0-100.0); MEAN PLATELET VOLUME 10.3 fL (7.4-10.4); MONOCYTES 9.9 % (2-11); NEUTROPHILS 66.7 % (40-80); PLATELET COUNT 167 10x3/uL (130-400); RBC 3.91 10x6/uL (4.20-6.10); RDW 14.3 % (11.5-14.5); WBC 7.1 10x3/uL (4.8-10.8)
[2018-01-31 05:53] VITALS: BP 112/74
[2018-01-31 05:58] LABS: CALC OSMOLALITY 285 mosm/kg (275-300); CALCIUM 7.9 mg/dL (8.5-10.1); CARBON DIOXIDE 29.6 mmol/L (21.0-32.0); CHLORIDE - SERUM 105 mmol/L (98-107); CREATININE - SERUM 0.9 mg/dL (0.6-1.3); GLUCOSE 108 mg/dL (74-106); POTASSIUM - SERUM 4.1 mmol/L (3.5-5.1); SODIUM 142 mmol/L (136-145); eGFR NON AFRICAN AMERICAN 85 mL/min (90-120)
[2018-01-31 06:03] LABS: UREA NITROGEN 17 mg/dL (7-18)
[2018-01-31 08:33] VITALS: BP 119/80
[2018-01-31 12:55] VITALS: BP 124/84
[2018-01-31] MEDS ORDERED: NICODERM C1 PATCH .1 TRANSDERM (15:07)
[2018-01-31] MEDS ORDERED: PLAVIX75 MG PO (15:07)
[2018-01-31 15:38] VITALS: BP 102/67
== END 2018-01-31 17:19 | disposition home or self-care (01) | DRG 247 ==
LOC: D.ER 09:50 → D.M2 16:46 → D.EDHOLD 16:46 → OBSVTIME 16:46 → D.EDHOLD 16:46 → D.M2 17:24
PROVIDERS: Family Medicine; Internal Medicine Interventional Cardiology; Internal Medicine Nephrology
PROC: B211YZZ Fluoroscopy of Multiple Coronary Arteries using Other Contrast (ICD-10-PCS; 2018-01-30)
PROC: B215YZZ Fluoroscopy of Left Heart using Other Contrast (ICD-10-PCS; 2018-01-30)
PROC: 027135Z Dilation of Coronary Artery, Two Arteries with Two Drug-eluting Intraluminal Devices, Percutaneous Approach (ICD-10-PCS; principal; 2018-01-30 11:45)
PROC: 4A023N7 Measurement of Cardiac Sampling and Pressure, Left Heart, Percutaneous Approach (ICD-10-PCS; 2018-01-30 11:45)
DX: I25.10 Atherosclerotic heart disease of native coronary artery without angina pectoris (principal); N17.9 Acute kidney failure, unspecified; F17.203 Nicotine dependence unspecified, with withdrawal; E78.5 Hyperlipidemia, unspecified; I10 Essential (primary) hypertension; I45.10 Unspecified right bundle-branch block; D64.9 Anemia, unspecified

== ENCOUNTER 2018-02-13 12:17 | Inpatient (IN) | payer MEDICARE ==
[~2018-02-13] VITALS: Ht 167.6 cm; Wt 70.0 kg
[2018-02-13] VITALS (35 sets, daily range): BP systolic 80–105; BP diastolic 34–74; Ht 167.6 cm; Wt 70.0 kg
--- NOTE | ~2018-02-13 | HEMODYNAMI ---
PATIENT:FREDIS BELL MEDICAL RECORD: [id number] : 33 [facility] ADMISSION DATE: 02/13/18 Generatedon:02/13/201814:28 Patient name: FREDIS BELL Patient #: [id number] SSN: : 1935 Date of study: 02/13/2018 Page: Of Hemodynamic Procedure Report Patient Data Patient Demographics Procedure consent was obtained First Name: FREDIS Gender: Male Last Name: ARABELLA : 1935 Middle Initial: D Age: 82 year(s) Patient #: [id number] Race: Unknown Additional ID: [id number] Contact details [address]: [address] [place] [address] rd State: [place] City: [place] Zip code: [address] Past Medical History Allergies Allergen Reaction Date Comments Reported Other allergy 02/13/2018 flu vaccine Admission Admission Data Admission Date: 02/13/2018 Admission Time: 12:17 Admit Source: Emergency department Room #: D.CV03 Procedure Procedure Types Cath Procedure Diagnostic Procedure PCI Procedure AMI/SVG/CNA HHA PTCA or Stent AMI-BMS/KELLIE Initial PTCA PTCA Additional Procedure Description Procedure Date Procedure Date: 02/13/2018 Procedure Start Time: 12:48 Procedure End Time: 14:27 Procedure Staff Name Function Michela Hernández MD Performing Physician Ghislaine De La Vega RN Nurse Edinson Chisholm RN Motor Express Clerk [facility] RT Scrub Yahir Bhakta RT Monitor Procedure Data Cath Procedure Entry Location Entry Primary Successful Side Size Upsize 1 Upsize Entry Closure Bland ccessful Closure Location (Fr) (Fr) 2 (Fr) Remarks Device Remarks Femoral Right 6 Fr 6 Fr 7 Fr artery Short Mid-Length Short Estimated blood loss: 10 ml Diagnostic catheters Device Type Used For End Catheter Placement DIAGNOSTIC MPA-2 5Fr Procedure catheter ([id number]) Procedure Complications No complications Procedure Medications Medication Administration Route Dosage Oxygen NRB 15 l/min Heparin Flush Bag added to field 2 bags (1000units/500ml NS) 0.9% NaCl I.V. 100 ml/hr Benadryl I.V. 50 mg Fentanyl I.V. 50 mcg Versed I.V. 1 mg Zofran I.V. 4 mg Integrilin (Bolus I.V. 6.2 ml 2mg/ml) Heparin Bolus I.V. 5000 units Integrilin (Bolus I.V. 6.2 ml 2mg/ml) Integrilin Drip I.V. drip 11.2 ml/hr (75mg/100ml) Heparin Drip I.V. drip 1000 units/hr (91927kvomi/250 D5W) Integrilin (Bolus wasted 7.6 ml 2mg/ml) Effient P.O. 60 mg Hemodynamics Rest Heart Rate: 126 (bpm) Pressure Samples Time Site Value (mmHg) Purpose Heart Use Rate(bpm) 12:59 AO 68/57(60) Snapshot 102 13:00 AO 68/59(64) Snapshot 88 13:00 AO 63/56(60) Snapshot 90 13:04 AO 73/58(68) Snapshot 113 13:08 AO 72/64(67) Snapshot 95 Snapshots Pre Cath Intra NCS Post Cath Vital Signs Time Heart Resp SPO2 etCO2 NIBP Rhythm Pain Sedation Rate (ipm) (%) (mmHg) (mmHg) Status Level (bpm) 12:44:31 92 17 0 Measuring NSR 0 (11) 10(A) , No pain 12:45:53 69 17 0 Time NSR 0 (11) 10(A) Exceeded , No pain 12:50:52 114 16 0 Measuring NSR 0 (11) 10(A) , No pain 12:51:37 144 16 0 89/71(79) NSR 0 (11) 10(A) , No pain 12:56:36 111 16 100 0 Measuring NSR 0 (11) 10(A) , No pain 12:58:00 103 17 98 0 Time NSR 0 (11) 10(A) Exceeded , No pain 13:01:41 114 17 0 Time NSR 0 (11) 10(A) Exceeded , No pain 13:06:38 111 16 0 Time NSR 0 (11) 10(A) Exceeded , No pain 13:11:37 101 17 0 Measuring NSR 0 (11) 10(A) , No pain 13:12:14 89 16 0 84/56(62) NSR 0 (11) 10(A) , No pain 13:16:12 105 16 98 0 84/68(78) NSR 0 (11) 10(A) , No pain 13:21:11 39 17 0 Measuring NSR 0 (11) 10(A) , No pain 13:22:35 87 16 0 Time NSR 0 (11) 10(A) Exceeded , No pain 13:26:43 94 17 0 92/70(83) NSR 0 (11) 10(A) , No pain 13:30:42 96 16 0 79/64(66) NSR 0 (11) 10(A) , No pain 13:34:42 77 16 100 0 87/55(82) NSR 0 (11) 10(A) , No pain 13:38:44 53 14 99 0 87/55(75) NSR 0 (11) 10(A) , No pain 13:42:45 18 15 100 0 81/56(59) NSR 0 (11) 10(A) , No pain 13:46:43 91 14 0 91/59(77) NSR 0 (11) 10(A) , No pain 13:50:45 92 17 100 0 103/59(86) NSR 0 (11) 10(A) , No pain 13:54:44 91 15 96 0 94/76(88) NSR 0 (11) 10(A) , No pain 13:59:43 68 12 98 0 Measuring NSR 0 (11) 10(A) , No pain 13:59:45 72 12 98 0 90/70(82) NSR 0 (11) 10(A) , No pain 14:03:49 12 14 98 0 83/55(78) NSR 0 (11) 10(A) , No pain 14:07:49 88 13 97 0 93/57(86) NSR 0 (11) 10(A) , No pain 14:11:51 86 13 97 0 86/60(69) NSR 0 (11) 10(A) , No pain 14:15:50 86 14 97 0 93/57(85) NSR 0 (11) 10(A) , No pain 14:19:52 89 12 96 0 90/60(75) NSR 0 (11) 10(A) , No pain 14:24:04 92 22 97 0 89/46(64) NSR 0 (11) 10(A) , No pain 14:27:59 0 94/62(84) NSR 0 (11) 10(A) , No pain Medications Time Medication Route Dose Verified Delivered Reason Not es Effectiveness by by 12:43:05 Oxygen NRB 15 l/min Micheal Neves Per physician Betty Chisholm RN 12:43:14 Heparin Flush added 2 bags Micheal Morelandy used for Bag to Betty Chisholm RN procedure (1000units/500ml field NS) 12:43:30 0.9% NaCl I.V. 100 Micheal Edinson Per physician ml/hr Betty Chisholm RN 12:43:57 Benadryl I.V. 50 mg Micheal Morelandy Per physician Betty Chisholm RN 12:49:24 Fentanyl I.V. 50 mcg Micheal Morelandy for sedation Betty Chisholm RN 12:49:30 Versed I.V. 1 mg Micheal Morelandy for sedation Betty Chisholm RN 12:49:47 Zofran I.V. 4 mg Micheal Morelandy for nausea Betty Chisholm RN 12:50:15 Integrilin I.V. 6.2 ml Micheal Edinson for (Bolus 2mg/ml) Betty Chisholm RN antiplatelet therapy 12:54:31 Heparin Bolus I.V. 5000 Michealnohelia Morelandy for units Betty Chisholm RN anticoagulation 12:57:03 Integrilin I.V. 6.2 ml Micheal Morelandy for (Bolus 2mg/ml) Betty Chisholm RN antiplatelet therapy 13:06:09 Integrilin Drip I.V. 11.2 Imcheal Edinson for (75mg/100ml) drip ml/hr Betty Chisholm RN antiplatelet therapy 13:19:54 Heparin Drip I.V. 1000 Micheal Edinson for (03837zzylo/250 drip units/hr Betty Chisholm RN anticoagulation D5W) 13:30:02 Integrilin wasted 7.6 ml Micheal Morelandy for (Bolus 2mg/ml) Betty Chisholm RN antiplatelet therapy 13:32:13 Effient P.O. 60 mg Micheal Edinson for Tauth MD Chisholm RN antiplatelet therapy Procedure Log Time Note 12:15:49 [facility] RT(R) (CV) sent for patient. Start room use. 12::24 Informed consent obtained and on chart 12:29:27 Admit Source: Emergency department 12:29:42 Diagnostic Cath status Emergency 12:29:55 Time tracking: Regular hours (M-F 7:00 - 5:00) 12:29:58 Plan of Care:Hemodynamics will remain stable., Cardiac rhythm will remain stable., Comfort level will be maintained., Respiratory function will remain adequate., Patient/ family verbilizes understanding of procedure., Procedure tolerated without complication., Recovers from procedure without complications.. 12:30:24 H&P Date Dictated: 02/13/2018 ER History on chart.. 12:42:41 Vital chart was started 12:43:05 Oxygen 15 l/min NRB was administered by Edinson Chisholm RN; Per physician; 12:43:14 Heparin Flush Bag (1000units/500ml NS) 2 bags added to field was administered by Edinson Chisholm RN; used for procedure; 12:43:30 0.9% NaCl 100 ml/hr I.V. was administered by Edinson Chisholm RN; Per physician; 12:43:57 Benadryl 50 mg I.V. was administered by Edinson Chisholm RN; Per physician; 12:47:35 Zero performed for pressure channel P1 12:47:53 Patient received from ED to CCL 3 Alert and oriented. Tansferred to table in Supine position. 12:47:54 Warm blankets applied, and marisabel hugger turned on for patient comfort. 12:47:54 Correct patient and procedure confirmed by team. 12:47:55 ECG and BP/O2 sat monitors applied to patient. 12:47:56 Baseline sample Acquired. 12:48:02 IV patent on arrival in right forearm with 0.9% NaCl at [facility]. 12:48:03 Physician arrived 12:48:04 --------ALL STOP TIME OUT------ 12:48:05 Final Timeout: patient, procedure, and site verified with staff and physician. All members of the team are in agreement. 12:48:06 Right groin site verified by team. 12:48:24 Full Disclosure recording started 12:48:29 Procedure started. 12:48:36 Local anesthetic to right femoral artery with Lidocaine 2% by Micheal Hernández MD.INITIAL ACCESS ONLY 12:48:44 A 6 Fr Short sheath was inserted into the Right Femoral artery 12:48:48 Pre-procedure instructions explained to patient. 12:48:49 Pre-op teaching completed and patient verbalized understanding. 12:48:55 Family in waiting room. 12:48:57 Patient NPO since Breakfast. 12:49:05 Patient allergic to Other allergyflu vaccine 12:49:06 Is the patient allergic to Iodine/contrast media? No. 12:49:07 Is patient on blood thinner?Yes 12:49:09 ACC The patient was administered the following blood thiners within the last 24 hours: ACCPlavix 12:49:24 Fentanyl 50 mcg I.V. was administered by Edinson Chisholm RN; for sedation; 12:49:30 Versed 1 mg I.V. was administered by Edinson Chisholm RN; for sedation; 12:49:47 Zofran 4 mg I.V. was administered by Edinson Chisholm RN; for nausea; 12:49:58 Use device set Femoral Dx 12:49:59 ACIST Syringe (67763) opened to sterile field. 12:49:59 Bag Decanter (2002S) opened to sterile field. 12:50:00 Right groin area was prepped with chlora-prep and draped in sterile fashion 12:50:01 Alarms reviewed by R. N. 12:50:01 ACIST Hand Control (94547) opened to sterile field. 12:50:02 Sharps counted by scrub and verified by R.N. 12:50:02 ACIST Manifold (79006) opened to sterile field. 12:50:02 Tegaderm 4 x 4 (1626W) opened to sterile field. 12:50:06 Medline Cath Pack ([id number]) opened to sterile field. 12:50:07 Physical assessment completed. ASA score P 4 - A patient with severe systemic disease that is a constant threat to life as per Micheal Hernández MD. 12:50:07 DIAGNOSTIC WIRE .035 260cm J wire (918571) opened to sterile field. 12:50:08 Sedation plan: IV Moderate Sedation Medication:Versed, Fentanyl 12:50:15 Integrilin (Bolus 2mg/ml) 6.2 ml I.V. was administered by Edinson Chisholm RN; for antiplatelet therapy; 12:50:21 SHEATH Prelude 6Fr 0.035 (UID-3U-53-035) opened to sterile field. 12:50:34 6 Fr XB 4 guide catheter was inserted over the wire 12:51:10 SHEATH 6FR ARROW 45cm (CL-24372) opened to sterile field. 12:51:20 Guide Catheter removed. unable to cannulate vessel. 12:51:37 Sheath upsized to a 6 Fr Mid-Length. 12:51:58 6 Fr XB 4 guide catheter was inserted over the wire 12:51:59 GUIDE 6FR XB 4.0 catheter ([id number]) opened to sterile field. 12:53:21 Guide Catheter removed. unable to cannulate vessel. 12:53:29 GUIDE 6FR EBU 3.5 catheter ([id number]) opened to sterile field. 12:54:18 6 Fr EBU 3.5 guide catheter was inserted over the wire 12:54:31 Heparin Bolus 5000 units I.V. was administered by Edinson Chisholm RN; for anticoagulation; 12:54:56 CHOICE PT Extra Support 182cm wire (1200751T0) opened to sterile field. 12:55:06 CHOICE PT ES wire advanced. 12:55:24 ADVANCED DOWN OM 12:55:28 CHOICE PT ES wire advanced. 12:56:14 2ND WIRE REMOVED. 12:56:26 CHOICE PT Extra Support J 300cm guide wire ([id number]) opened to sterile field. 12:56:34 LONG CHOICE PT ES wire advanced. 12:57:03 Integrilin (Bolus 2mg/ml) 6.2 ml I.V. was administered by Edinson Chisholm RN; for antiplatelet therapy; 12:57:38 Wire advanced across lesion. 12:57:39 Wire advanced across lesion. 12:57:52 Inflate balloon Inflation number: 1 A EUPHORA 3.0 x 15 Balloon ([id number]) was prepped and advanced across the Prox CX, then inflated to 11 MARION for 0:10 (min:sec). 12:59:04 Balloon removed over the wire. 12:59:51 Inflate balloon Inflation number: 1 A EUPHORA 3.0 x 15 Balloon ([id number]) was prepped and advanced across the 1st Ob Alicia, then inflated to 11 MARION for 0:10 (min:sec). 12:59:55 Inflation number: 2 The EUPHORA 3.0 x 15 Balloon ([id number]) was reinflated across the 1st Ob Alicia, to 11 MARION for 0:10 (min:sec). 13:01:03 Balloon removed over the wire. 13:02:01 Inflate balloon Inflation number: 3 A EMERGE OTW 3.0 x 20 balloon ([id number]) was prepped and advanced across the Prox CX, then inflated to 11 MARION for 0:10 (min:sec). 13:03:07 Inflation number: 4 The EMERGE OTW 3.0 x 20 balloon ([id number]) was reinflated across the Prox CX, to 11 MARION for 0:10 (min:sec). 13:03:26 Inflation number: 5 The EMERGE OTW 3.0 x 20 balloon ([id number]) was reinflated across the Prox CX, to 17 MARION for 0:10 (min:sec). 13:04:03 Balloon removed over the wire. 13:05:38 Place stent Inflation Number: 3 A INTEGRITY RX 2.5 x 08 stent ([id number]) was prepped and advanced across the 1st Ob Alicia. The stent was deployed at 11 MARION for 0:10 (min:sec). 13:06:06 Inflation number: 4 The stent balloon was then re-inflated across the 1st Ob Alicia to 11 MARION for 0:10 (min:sec). 13:06:09 Integrilin Drip (75mg/100ml) 11.2 ml/hr I.V. drip was administered by Edinson Chisholm RN; for antiplatelet therapy; 13:06:12 Inflation number: 5 The stent balloon was then re-inflated across the 1st Ob Alicia to 11 MARION for 0:10 (min:sec). 13:06:45 Balloon removed over the wire. 13:06:52 Wire removed. 13:07:22 wire removed from OM 13:07:53 Inflation number: 2 The EUPHORA 3.0 x 15 Balloon ([id number]) was reinflated across the Prox CX, to 15 MARION for 0:10 (min:sec). 13:08:30 Balloon removed over the wire. 13:08:31 Wire removed. 13:08:34 Guide catheter removed. 13:13:33 SHEATH 7FR [place] (SUQ469) opened to sterile field. 13:14:20 Sheath upsized to a 7 Fr Short. 13:14:40 IABP 34cm balloon catheter ([id number]) opened to sterile field. 13:16:40 A DIAGNOSTIC MPA-2 5Fr catheter (602707H) was advanced over the wire and used for Procedure. 13:17:09 DIAGNOSTIC WIRE .035 260cm J wire (201204) opened to sterile field. 13:17:26 j wire wire advanced. 13:17:46 Wire removed. 13:18:31 Catheter removed. 13:18:35 34cc IABP inserted into the RFA . 13:19:54 Heparin Drip (17964wuldz/250 D5W) 1000 units/hr I.V. drip was administered by Edinson Chisholm RN; for anticoagulation; 13:20:12 Augmentation: 1:1 per physician. 13:20:14 Trigger: Pressure 13:24:13 Procedure ended.(Physican Out) 13:25:31 IABP Catheter was sutured into place , and a sterile dressing was applied. 13:25:43 Sharps counted by scrub and verified by R.N. 13:25:45 Insertion/operative site no bleeding no hematoma. 13:25:51 Post-op/insertion site Right Femoral artery dressed using a 4 x 4 and Tegaderm. 13:25:55 Post right femoral artery:stable, clean and dry 13:26:00 Post Procedure Pulses reassessed and unchanged 13:26:41 Post-procedure physical assessment completed. ASA score P 4 - A patient with severe systemic disease that is a constant threat to life as per Micheal Hernández MD. 13:27:07 Post procedure rhythm: sinus tachycardia 13:27:10 Estimated blood loss: 10 ml 13:27:12 Post procedure instruction explained to patient.Patient verbalizes understanding. 13:27:13 Patient needs reinforcement of post procedure teaching. 13:29:19 Procedure type changed to Cath procedure, Diagnostic procedure, PCI procedure, AMI/SVG/CNA HHA PTCA or Stent, AMI-BMS/KELLIE Initial, PTCA, PTCA Additional 13:30:02 Integrilin (Bolus 2mg/ml) 7.6 ml wasted was administered by Edinson Chisholm RN; for antiplatelet therapy; 13:32:13 Effient 60 mg P.O. was administered by Edinson Chisholm RN; for antiplatelet therapy; 13:40:38 Tegaderm 4 x 4 (1626W) opened to sterile field. 13:40:38 Tegaderm 4 x 4 (1626W) opened to sterile field. 13:40:39 Tegaderm 4 x 4 (1626W) opened to sterile field. 13:40:42 Tegaderm 4 x 4 (1626W) opened to sterile field. 13:47:39 INFLATOR Merit [place] (VQ9380) opened to sterile field. 13:49:57 Procedure and supply charges have been captured, reviewed, submitted and are correct. 13:49:58 Procedure Complication : No complications 13:57:34 Pt being held and monitered in CL room 3 till CVICU room becomes avaliable. 14:27:47 Vital chart was stopped 14:27:47 See physician's report for complete and final results. 14:27:49 Report given to ICU. 14:27:51 Patient transfered to ICU with Stretcher. 14:27:53 Procedure ended. 14:27:53 Full Disclosure recording stopped 14:27:58 End room use (Document Last) Intervention Summary Intervention Notes Time ActionType Lesion and Equipment Action# Pressure Duration Attributes Used 12:57:52 Inflate Prox CX EUPHORA 3.0 1 11 00:10 balloon x 15 Balloon ([id number]) 12:59:51 Inflate 1st Ob Alicia EUPHORA 3.0 1 11 00:10 balloon x 15 Balloon ([id number]) 12:59:55 Reinflate 1st Ob Alicia EUPHORA 3.0 2 11 00:10 balloon x 15 Balloon ([id number]) 13:02:01 Inflate Prox CX EMERGE OTW 3 11 00:10 balloon 3.0 x 20 balloon ([id number]) 13:03:07 Reinflate Prox CX EMERGE OTW 4 11 00:10 balloon 3.0 x 20 balloon ([id number]) 13:03:26 Reinflate Prox CX EMERGE OTW 5 17 00:10 balloon 3.0 x 20 balloon ([id number]) 13:05:38 Place stent 1st Ob Alicia INTEGRITY RX 3 11 00:10 2.5 x 08 stent ([id number]) 13:06:06 Reinflate 1st Ob [place] INTEGRITY RX 4 11 00:10 stent 2.5 x 08 balloon stent ([id number]) 13:06:12 Reinflate 1st Ob Alicia INTEGRITY RX 5 11 00:10 stent 2.5 x 08 balloon stent ([id number]) 13:07:53 Reinflate Prox CX EUPHORA 3.0 2 15 00:10 balloon x 15 Balloon ([id number]) Device Usage Item Name Manufacture Quantity Catalog Number [facility] Part [facility] nt Minimal Lot# / Charge Number Stock Stock Serial# Code ACIST Syringe Acist 1 16431 147441 405708 04909 1 20 (44595) Medical Systems Godengo Bag Decanter Microtek 1 2001S 000641 17972 97552 4 5 (2001S) Medical Inc. ACIST Hand Acist 1 41440 463078 404595 99916 4 5 Control (71364) Medical Systems Inc ACIST Manifold Acist 1 04758 882588 606234 12556 1 5 (82644) Medical Systems Inc Tegaderm 4 x 4 3M 5 1626W 401760 998505 86257 1 5 (1626W) Medline Cath Cardinal 1 [id number] 305430 59494 95486 5 5 [facility] ([id number]) DIAGNOSTIC WIRE [place] 2 489479 741978 291089 44068 5 30 .035 260cm J wire (920167) SHEATH Prelude Merit 1 SQT-5D-64-35 929461 9744560 78559 5 5 6Fr 0.035 Medical (YBB-1P-74-035) SHEATH 6FR Teleflex 1 CL-87127 094131 962501 22561 0 5 ARROW 45cm (CL-96239) GUIDE 6FR EBU Medtronic 1 [id number] 705143 39001 89140 0 3 3.5 catheter ([id number]) CHOICE PT Extra [place] 1 [id number] 687543 525273 64505 6 5 Support 182cm Scientific wire ([id number]) CHOICE PT Extra [place] 1 [id number] 897079 960451 85581 3 5 Support J 300cm Scientific guide wire ([id number]) EUPHORA 3.0 x Medtronic 2 [id number] 461242 922354 74896 1 5 [id number] 15 Balloon [id number] ([id number]) INTEGRITY RX Medtronic 1 [id number] 883145 816462 99499 4 5 [id number] 2.5 x 08 stent ([id number]) SHEATH 7FR Terumo 1 RGK451 802369 560363 48930 3 5 [place] (EUQ691) IABP 34cm [facility] 1 [id number] 008564 019471 70075 5 1 balloon LiveHive [facility] catheter (951300) ([id number]) DIAGNOSTIC Cardinal 1 [id number] 018033 257892 74571 5 5 MPA-2 5Fr Posmetrics catheter (292003L) EMERGE OTW 3.0 [place] 1 [id number] 304506 817052 23063 3 5 [id number] x 20 balloon Scientific ([id number]) INFLATOR Merit Merit 1 [id number] 130554 388047 99359 7 15 [facility] (FH3903) GUIDE 6FR XB Cardinal 1 [id number] 076095 993346 90131 6 2 4.0 Linkage ([id number]) Signature Audit [place] Stage Time Signature Unsigned Intra-Procedure 02/13/2018 Yahir Bhakta 2:28:12 PM RT(R) Signatures Monitor : Yahir Bhakta RT Signature : Date : Time : [address] [place] [address]
--- NOTE | ~2018-02-13 | EC ---
PATIENT:FREDIS BELL DATE OF SERVICE: 02/14/18 SEX: M MEDICAL RECORD: [id number] DATE OF : 34 LOCATION:[place] [address] AGE OF PATIENT: 82 ADMISSION DATE: 02/14/18 REFERRING PHYSICIAN: INTERPRETING PHYSICIAN: CASEY HERNÁNDEZ MD ECHOCARDIOGRAM REPORT ECHO CHARGES 5 ECHO LIMITED Date: 02/14 CLINICAL DIAGNOSIS: ASSESS EF, POST ID AND REECENT V TACH ECHOCARDIOGRAPHIC MEASUREMENTS (adult normal given) AC root (d.<3.7cm) cm LV Septum d (<1.2 cm> cm Valve Excursion cm LV Septum (systole) cm Left Atria (s.<4.0cm> cm LVPW d(<1.2cm) cm RV (d.<2.3cm) cm LVPW (sytole) cm LV diastole(<5.6CM) 5.1 cm MV E-F(>70mm/sec) cm LV systole 4.4 cm LVOT Diameter cm MV exc.(>10mm) cm Est.ejection fraction (50-75%) % DOPPLER: LVIT cm/sec A cm/sec E cm/sec LA cm/sec RVSP mmHg LVOT cm/sec AOP1/2T m/s Asc. Ao cm/sec RVOT cm/sec RA cm/sec PA cm/sec AV Gradient Peak mmHg AV Mean mmHg AV Area cm MV Gradient Peak mmHg MV Mean mmHg MV Area cm COMMENTS: Registered Nurse Teacher: Manuel ACEVEDO Manager Lighting: 1 Dr. Hernández TAPE# PACS Pericardial Effusion N DATE OF SERVICE: 02/14/2018 PROCEDURE: Limited echo for ejection fraction. FINDINGS: Left ventricular chamber size is mildly dilated. Left ventricular systolic function is markedly reduced. Overall ejection fraction estimated at 25% to 30%. TRANSINT:[id number] Voice Confirmation ID: [id number] DOCUMENT ID: [id number] ECHOCARDIOGRAM REPORT [id number] FREDIS BELL CASEY HERNÁNDEZ MD at 1713 CC: [id number] DICTATION DATE: 02/14/18 1228 [employer]PER[employer]OR [employer]TE[employer]: 02/14/18 1233 DIS IN 02/14/18 [place] [address]
--- NOTE | ~2018-02-13 | HP ---
PATIENT: FREDIS ALEJANDRO MEDICAL RECORD: [id number] ACCOUNT: [id number] LOCATION:[facility] [id number] : 33 ADMISSION DATE: 02/14/18 HISTORY AND PHYSICAL EXAMINATION DIAGNOSES: 1. Acute anterolateral myocardial infarction. 2. Coronary artery disease. 3. Previous percutaneous transluminal coronary angioplasty stent. 4. Hypertension. 5. Hyperlipidemia. HISTORY OF PRESENT ILLNESS: Mr. Alejandro presents after 2 hours of chest pain. Supposedly, he was mowing the lawn, began having severe chest pain this morning at 10:00 a.m., presented to the Emergency Room approximately 12:30. EKG is compatible with an acute anterolateral myocardial infarction. REVIEW OF SYSTEMS: The patient reports easy bruising but reports no swollen glands. The patient reports no fever, no night sweats, no significant weight gain, no significant weight loss. No significant exercise tolerance. The patient reports no dry eyes, no irritation, no vision change. Patient reports no difficulty hearing and no ear pain. Patient reports no frequent nose bleeds or nose and sinus problems. Patient reports on arm pain on exertion. No shortness of breath while lying down. No history of heart murmur. Patient reports no cough, no wheezing or coughing up blood. Patient reports no abdominal pain, no vomiting. Normal appetite. No diarrhea and not vomiting blood. No nausea and no constipation. Patient reports no incontinence. No difficulty urinating. No hematuria. No increased frequency. Patient reports no muscle aches. No weakness, no arthralgias, no back pain. No swelling of the extremities. Patient reports no abnormal mole, no jaundice, no rashes. Reports no loss of consciousness. No weakness and no numbness. No seizures, dizziness, or headaches. The patient reports no depression, no sleep disturbance, feeling safe in a relationship and no alcohol abuse. Patient reports on fatigue. Reports no runny nose or sinus pressure. No itching, no hives, and no frequent sneezing. PHYSICAL EXAMINATION: GENERAL APPEARANCE: Well-nourished, well-developed, appears stated age. Level of distress, comfortable. PSYCHIATRIC: Mental status, alert, normal affect. Orientation, oriented to time, place and person. EYES: Lids and conjunctiva, noninjected. No discharge, no pallor. ENT: Lips, teeth, gums, normal dentition. Oropharynx, no cyanosis, no pallor. NECK: Carotid arteries, bilateral normal upstroke, no bruits, no thrills. JUGULAR VEINS: No jugular venous pressure or distention. CERVICAL LYMPH NODES: Nontender, nonenlarged. THYROID: Not enlarged. Nontender. No nodules. LUNGS: Respiratory effort, unlabored. CHEST: Normal curvature. No thoracic deformity. No chest wall tenderness. Percussion, resonant. Auscultation, clear. No wheezes, no rales, no rhonchi. CARDIOVASCULAR: Precordial exam, nondisplaced. No heaves or pericardial thrills. Rate and rhythm, regular. Heart sounds, normal S1, normal S2. No S3, no gallop, no rub. Systolic murmur, not heard. Diastolic murmur, not heard. EXTREMITIES: No cyanosis, no edema. Peripheral pulses, full and equal in all extremities, except as noted. No bruits appreciated. HISTORY AND PHYSICAL [id number] HEYDIRONALFREDIS D ABDOMEN: Soft, nondistended. Normal aorta. No bruit. Nontender. No masses. Liver, nontender, no hepatomegaly. Spleen, nontender, no splenomegaly. MUSCULOSKELETAL: No joint tenderness. No joint swelling. No erythema. NEUROLOGICAL: Normal gait, normal strength, normal tone. SKIN: Warm and dry. OVERALL IMPRESSION: Acute anterolateral myocardial infarction, most likely has acute closure of his circumflex, very well may be a Plavix nonresponder. We will take him immediately to the cardiac catheterization lab for emergent transcatheter revascularization. TRANSINT:[id number] Voice Confirmation ID: [id number] DOCUMENT ID: [id number] CASEY COLINDRES MD at 1713 CC: [id number] DICTATION DATE: 02/13/18 1558 CAFE LEAD: 02/13/18 1615 DIS IN 02/14/18 [place] [id number] [place] [address]
--- NOTE | ~2018-02-13 | OP ---
PATIENT NAME: FREDIS BELL MEDICAL RECORD: [id number] :33 LOCATION:[facility] D.2313 ADMISSION DATE:02/14/18 SURGEON: CASEY COLINDRES MD DATE OF OPERATION: 02/13/2018 PROCEDURES: 1. PTCA of left circumflex. 2. PTCA stent of first obtuse marginal. 3. Selective coronary angiography. 4. Intraaortic balloon pump placement. INDICATION: Acute anterolateral myocardial infarction. PROCEDURE IN DETAIL: After informed consent was obtained and after detailed description of risks, benefits as well as alternative therapies, the patient elected to proceed with angiogram and angioplasty. The right femoral area was prepped and draped in normal sterile fashion. Right femoral artery was cannulated via modified Seldinger technique with placement of 7-Latv[place] sheath. All catheters exchanged through this sheath. FINDINGS: The left circumflex is totally and acutely occluded as is the first obtuse marginal. We ballooned the circumflex with a 3.0 balloon and a 2.5 balloon in the marginal. The marginal was stented with a 2.5 x 8 mm Integrity stent. Result was 0% residual throughout presybeterian of JENNIFER-3 flow. IMPRESSION: Successful percutaneous transluminal coronary angioplasty stent of the first obtuse marginal and percutaneous transluminal coronary angioplasty of the left circumflex going from 100% initial stenosis with JENNIFER 0 flow to 0% residual stenosis with JENNIFER 3 flow. After the case, the patient remained hypotensive. Intraaortic balloon pump was placed without incident. TRANSINT:[id number] Voice Confirmation ID: [id number] DOCUMENT ID: [id number] ADDENDUM TO PROCEDURE NOTE DONE 02/13/2018: The stenosis was in-stent restenosis. Dictation ID #[id number] CASEY COLINDRES MD at 1752 CC: [id number] DICTATION DATE: 02/13/18 1555 EDUCATIONAL PSYCHOLOGY TEACHER: 02/13/18 1812 DIS IN 02/14/18 [place] [id number]
--- NOTE | ~2018-02-13 | DS ---
PATIENT:FREDIS BELL :33 MEDICAL RECORD: [id number] DISCHARGE SUMMARY ADMISSION DATE: 02/14/18 DISCHARGE DATE: 02/14/18 DATE OF SERVICE: 02/14/2018. DIAGNOSES: 1. Acute anterolateral myocardial infarction. 2. PTCA stent left circumflex. 3. Cardiomyopathy. 4. Ventricular tachycardia. 5. Congestive heart failure. 6. Cardiogenic shock. HOSPITAL COURSE: Mr. Louie presented after being home for 3-1/2 hours with chest pain, found to have an acute anterolateral myocardial infarction, underwent PTCA stent of the circumflex, but was in cardiogenic shock. At that time, he did have an intraaortic balloon pump counterpulsation placed as well. His blood pressure continued to remain low, requiring pressors. He then became unstable with incessant ventricular tachycardia despite pharmacologic means. Family made him a comfort care only and he passed on 02/14/2018. TRANSINT:[id number] Voice Confirmation ID: [id number] DOCUMENT ID: [id number] CASEY COLINDRES MD at 1713 CC: [id number] DICTATION DATE: 02/15/18 0955 MINING SUPPORT WORKER: 02/15/18 1103 DIS IN 02/14/18 [place] [id number] [place] [id number]
[~2018-02-13 12:17] MED LIST changes: +NEURONTIN 300300 MG PO; +NICODERM C1 PATCH .1 TRANSDERM; +PLAVIX75 MG PO
[2018-02-13 12:47] LABS: BASOPHILS 0.2 % (0-2); CALCIUM 8.6 mg/dL (8.5-10.1); CARBON DIOXIDE 17.1 mmol/L (21.0-32.0); CREATININE - SERUM 1.3 mg/dL (0.6-1.3); EOSINOPHILS 2.7 % (0-7); HEMATOCRIT 44.1 % (42.0-54.0); HEMOGLOBIN 14.5 g/dL (13.5-17.5); IMMATURE GRANULOCYTES 0.2 % (0-5); LYMPHOCYTES 23.7 % (15-50); MCH 32.5 pg (26.0-34.0); MCHC 32.9 g/dL (31.0-37.0); MCV 98.9 fL (80.0-100.0); MEAN PLATELET VOLUME 11.5 fL (7.4-10.4); MONOCYTES 6.2 % (2-11); RBC 4.46 10x6/uL (4.20-6.10); RDW 14.3 % (11.5-14.5); WBC 16.1 10x3/uL (4.8-10.8)
[2018-02-13 12:50] LABS: PLATELET COUNT 100 10x3/uL (130-400)
[2018-02-13 12:51] LABS: POTASSIUM - SERUM 5.1 mmol/L (3.5-5.1)
[2018-02-13 13:35] LABS: CREATINE KINASE 200 UL (21-232)
[2018-02-13 13:36] LABS: CKMB 6.2 U/L (0.0-3.6)
[2018-02-13 13:38] LABS: TROPONIN-I 0.187 ng/mL (0.000-0.060)
[2018-02-13 17:35] LABS: HEMATOCRIT 37.4 % (42.0-54.0); HEMOGLOBIN 12.3 g/dL (13.5-17.5); MCH 32.2 pg (26.0-34.0); MCHC 32.9 g/dL (31.0-37.0); MCV 97.9 fL (80.0-100.0); MEAN PLATELET VOLUME 10.6 fL (7.4-10.4); RBC 3.82 10x6/uL (4.20-6.10); RDW 14.5 % (11.5-14.5); WBC 12.9 10x3/uL (4.8-10.8)
[2018-02-13 17:44] LABS: INR 1.25 (0.85-1.17); PROTIME 15.2 SECONDS (11.6-15.0)
[2018-02-13 18:20] LABS: APTT > 200.0 SECONDS (22.8-39.4)
[2018-02-13 18:26] LABS: ALBUMIN 3.1 g/dL (3.4-5.0); ALKALINE PHOSPHATASE 60 U/L (46-116); ALT (SGPT) 255 U/L (10-68); BILIRUBIN - TOTAL 0.47 mg/dL (0.2-1.3); CALCIUM 7.9 mg/dL (8.5-10.1); CHLORIDE - SERUM 108 mmol/L (98-107); CREATININE - SERUM 1.6 mg/dL (0.6-1.3); POTASSIUM - SERUM 5.5 mmol/L (3.5-5.1); SODIUM 140 mmol/L (136-145); UREA NITROGEN 24 mg/dL (7-18); eGFR NON AFRICAN AMERICAN 44 mL/min (90-120)
[2018-02-13 19:13] LABS: CALC OSMOLALITY 283 mosm/kg (275-300); CARBON DIOXIDE 26.5 mmol/L (21.0-32.0); GLUCOSE 117 mg/dL (74-106)
[2018-02-13 19:15] LABS: TROPONIN-I 308.516 ng/mL (0.000-0.060)
[2018-02-13 19:16] LABS: CREATINE KINASE 9736 UL (21-232)
[2018-02-14] VITALS (53 sets, daily range): BP systolic 75–114; BP diastolic 25–89
[2018-02-14 02:51] LABS: BASOPHILS 0.1 % (0-2); EOSINOPHILS 0 % (0-7); HEMATOCRIT 33.7 % (42.0-54.0); HEMOGLOBIN 10.7 g/dL (13.5-17.5); IMMATURE GRANULOCYTES 0.4 % (0-5); LYMPHOCYTES 22.9 % (15-50); MCH 31.8 pg (26.0-34.0); MCHC 31.8 g/dL (31.0-37.0); MCV 100.3 fL (80.0-100.0); MEAN PLATELET VOLUME 10.9 fL (7.4-10.4); NEUTROPHILS 66.6 % (40-80); PLATELET COUNT 163 10x3/uL (130-400); RBC 3.36 10x6/uL (4.20-6.10); RDW 14.7 % (11.5-14.5); WBC 15.6 10x3/uL (4.8-10.8)
[2018-02-14 03:04] LABS: ALBUMIN 2.5 g/dL (3.4-5.0); BILIRUBIN - TOTAL 0.39 mg/dL (0.2-1.3); CARBON DIOXIDE 20.3 mmol/L (21.0-32.0); PROTEIN - SERUM 5.1 g/dL (6.4-8.2)
[2018-02-14 03:05] LABS: ANION GAP 15.2 mmol/L (8-16); CREATININE - SERUM 2.2 mg/dL (0.6-1.3); POTASSIUM - SERUM 3.5 mmol/L (3.5-5.1)
== END 2018-02-14 16:20 | DRG 270 ==
LOC: D.ER 12:17 → D.CATH 12:17 → D.ER 13:12 → EDSTATUS 13:26 → D.CVICU 13:47 → D.ICU 14:39 → D.CATH 02-14 05:41 → D.ICU 02-14 05:42
PROVIDERS: Emergency Medicine; Internal Medicine Interventional Cardiology
PROC: 02703ZZ Dilation of Coronary Artery, One Artery, Percutaneous Approach (ICD-10-PCS; principal; 2018-02-14)
PROC: 5A02110 Assistance with Cardiac Output using Balloon Pump, Intermittent (ICD-10-PCS; 2018-02-14)
PROC: 027034Z Dilation of Coronary Artery, One Artery with Drug-eluting Intraluminal Device, Percutaneous Approach (ICD-10-PCS; 2018-02-14)
PROC: 5A1935Z Respiratory Ventilation, Less than 24 Consecutive Hours (ICD-10-PCS; 2018-02-14)
PROC: 0BH17EZ Insertion of Endotracheal Airway into Trachea, Via Natural or Artificial Opening (ICD-10-PCS; 2018-02-14)
DX: I97.190 Other postprocedural cardiac functional disturbances following cardiac surgery (principal); I21.A9 Other myocardial infarction type; T82.857A Stenosis of other cardiac prosthetic devices, implants and grafts, initial encounter; I42.9 Cardiomyopathy, unspecified; I10 Essential (primary) hypertension; E78.5 Hyperlipidemia, unspecified; I25.10 Atherosclerotic heart disease of native coronary artery without angina pectoris; Z95.5 Presence of coronary angioplasty implant and graft; R57.0 Cardiogenic shock